=== PATIENT | female | born 1995 | race Caucasian/White ===

== ENCOUNTER 2019-03-22 11:09 | Inpatient (IN) | payer OTHER ==
[~2019-03-22 11:09] MED LIST: CITRIC ACID/SODIUM CITRATE 30 ML UNIT-DOSE CUP PO ONE
[2019-03-22] MEDS: ELECTROLYTE-148 SOLN 500 ML IV SCH (11:25)
[2019-03-22] MEDS: ELECTROLYTE-148 SOLN 1,000 ML IV SCH (11:50)
[2019-03-22 12:55] VITALS: BMI 26.2
[2019-03-22] MEDS ORDERED: ONDANSETRON 4 MG/2 ML VIAL IVPUSH PRN (13:12)
[2019-03-22] MEDS ORDERED: morphine SULFATE/PF 0.5 MG/ML (2cc Syringe - QUVA) EP ONE (13:12)
[2019-03-22] MEDS ORDERED: morphine SULFATE/PF 0.5 MG/ML (2cc Syringe - QUVA) ONE (13:16)
[2019-03-22] MEDS ORDERED: ceFAZolin SODIUM 1 GM VIAL ONE (13:17)
[2019-03-22] MEDS ORDERED: ePHEDrine SULFATE 50 MG/1 ML AMPULE ONE (13:35)
[2019-03-22] MEDS ORDERED: OXYTOCIN 10 UNITS/ML VIAL ONE ×2 (13:37→13:59)
[2019-03-22] MEDS ORDERED: METHYLERGONOVINE MALEATE 0.2 MG/1 ML AMP IM PRN (15:29)
[2019-03-22] MEDS ORDERED: oxyCODONE HCL 5 MG TABLET PO PRN ×2 (15:29)
[2019-03-22] MEDS ORDERED: IBUPROFEN 800 MG/8 ML IJ IVPB PRN (15:29)
[2019-03-22] MEDS ORDERED: OXYTOCIN 20 UNITS in 0.9% NS 20 UNIT/1,000 ML INFUS.BAG IV ONE (16:03)
[2019-03-22] MEDS ORDERED: FLU VACCINE QUAD 60 MCG/0.5 ML (MDV 19-20) IM ONE (16:33)
--- NOTE | 2019-03-22 16:55 | HP ---
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: Alzheimer's, CVA, Dementia, Migraine, Multiple Sclerosis, Peripheral Neuropathy, Parkinson's, Seizure, Syncope, TIA, Vertigo, Other Cardiovascular: No: AFIB, Aneurysm, Aortic Insufficiency, Aortic Stenosis, CAD, CHF, Deep Vein Thrombosis, HTN, Hyperlipdemia, TN, Mitral Insufficiency, Mitral Stenosis, Murmur, Pulmonary Hypertension, Other Pulmonary: No: Asthma, Bronchitis, Cancer, COPD, O2 Dependent, Pneumonia, Previously Intubated, Pulmonary Embolus, Pulmonary Fibrosis, Sleep Apnea, Other Gastrointestinal: No: Ascites, Cancer, Constipation, Crohn's Disease, Diverticulitis, Diverticulosis, Esophageal Varices, Gastritis, GERD, GI Bleed, Hemorrhoids, Hiatal Hernia, Inflamatory Bowel Disease, Irritable Bowel Disease, Pancreatitis, Peptic Ulcer Disease, Ulcerative Colitis, Other Hepatobiliary: No: Cirrhosis, Cholelithiasis, Cholecystitis, Choledocholithiasis , Hepatitis A, Hepatitis B, Hepatitis C, Other Renal/: No: Renal Failure, Renal Inusuff, BPH, Cancer, Hematuria, Hemodialysis , Neurogenic Bladder, Renal Calculi, UTI, Other Reproductive: No: Ectopic , Endometriosis, Fibroids, PID, Polycystic Ovary Syndrome, Postmenopausal, Other ...: 1 ...Para: 0 ...Term: 0 ...: 0 ...Spon : 0 ...Induced : 0 ...Multiple Gestation: 0 ... Weeks Gestation by Dates: 39.6 ...EDC by Dates: 03/23/19 Heme/Onc: No: Anemia, B12 Deficiency, Bleeding Disorder, Cancer, Current Chemotherapy, Current Radiation Therapy, Hemochromatosis, Hypercoaguable State, Myeloproliferative Synd, Sickle Cell Disease, Sickle Cell Trait, Thrombocytopenia, Other Infectious Disease: No: AIDS, C-Diff, Herpes Zoster, HIV, MRSA, STD's, Tuberculosis, VREF, Other Psych: No: Addictions, Anxiety, Bipolar, Depression, Panic, Psychosis, Schizophrenia, Other Musculoskeletal: No: Bursitis, Chronic low back pain, Hemiparesis, Hemiplegia, Osteoarthritis, Paraplegia, Other Rheumatology: No: Fibromyalgia, Gout, Lupus, Rheumatoid Arthritis, Sarcoidosis, Vasculitis, Other ENT: No: Allergic Rhinitis, Sinusitis, Other Endocrine: No: Caribou's Disease, Hansen's Disease, Diabetes Insipidus, Diabetes Mellitus, Hyperparathyroidism, Hyperthyroidism, Hypothyroidism, Osteopenia, SIADH, Other Dermatology: No: Basal Cell, Cellulitis, Eczema, Melanoma, Psoriasis, Squamous Cell, Other - Past Surgical History Past Surgical History: No: None, AAA Repair, AICD, Amputation, Appendectomy, Arthrosocopy, AV Fistula/Graft, Bariatric Surgery, Breast Biopsy, Bypass, CABG, Carotid Endarterectomy, Cataract Removal, Cholecystectomy, Colectomy, Colonoscopy, Colostomy, Craniotomy, , Cystectomy, Hernia Repair, Hysterectomy, Ileal Conduit, Ileosotomy, Joint Replacement, Kidney Transplant, Laminectomy, Liver Transplant, Mastectomy, Nephrectomy, Oopherectomy, Orchiectomy, Permanent Pacemaker, Prostatectomy, Splenectomy, Stent, Thoracotomy , TURP, Tonsillectomy, Tubal Ligation, Upper Endoscopy, Valve Replacement, Vasectomy, Vein Stripping/Ligation Hx Myomectomy: No Hx Transabdominal Cerclage: No - Advance Directives Advance Directives: Yes: Living Will - Smoking History Smoking history: Never smoked Have you smoked in the past 12 months: No - Alcohol/Substance Use Hx Alcohol Use: No - Social History Usual Living Arrangement: Yes: With Spouse Do you think of yourself as: Straight/Heterosexual ADL: Independent History of Recent Travel: No Home Medications - Allergies Allergies/Adverse Reactions: Allergies Allergy/AdvReac Type Severity Reaction Status Date / Time No Known Allergies Allergy Verified 03/22/19 11:47 - Home Medications Home Medications: Ambulatory Orders Mv-Mn/Iron/FA/Herbal/Digestive [ One Tablet] 1 tab PO DAILY 03/22/19 Family Medical History Family History: Denies Review of Systems - Review of Systems Constitutional: reports: No Symptoms Eyes: reports: No Symptoms HENT: reports: No Symptoms Neck: reports: No Symptoms Cardiovascular: reports: No Symptoms Respiratory: reports: No Symptoms Gastrointestinal: reports: No Symptoms Genitourinary: reports: No Symptoms Breasts: reports: No Symptoms Reported Musculoskeletal: reports: No Symptoms Integumentary: reports: No Symptoms Neurological: reports: No Symptoms Endocrine: reports: No Symptoms Hematology/Lymphatic: reports: No Symptoms Psychiatric: reports: No Symptoms Physical Exam - Maternity Vital Signs: Vital Signs Temperature 97.9 F 03/22/19 16:30 Pulse Rate 93 H 03/22/19 16:30 Respiratory Rate 20 03/22/19 16:30 Blood Pressure 112/79 03/22/19 16:30 O2 Sat by Pulse Oximetry (%) 99 03/22/19 15:20 Constitutional: Yes: Well Nourished, No Distress, Calm Eyes: Yes: WNL, Conjunctiva Clear, EOM Intact HENT: Yes: WNL, Atraumatic, Normocephalic Neck: Yes: WNL, Supple, Trachea Midline Cardiovascular: Yes: WNL, Regular Rate and Rhythm Lungs: Clear to auscultation Breast(s): Yes: WNL - Abdominal Exam/OB Fundal Height: 40 Number of Fetuses: Single Presentation: Vertex Contractions: Yes Regularity: Irregular Intensity: Mild Monitor Mode: External Heart Rate (range): 135 Heart Rate Location: [facility] Category: I Accelerations: Uniform Decelerations: None - Vaginal Exam/OB Vaginal Bleediing: No Speculum Exam: No Dilatation (cm): 0 Effacement (%): 10 Amniotic Membrane Status: Intact Presentation: Vertex/Position Station: -3 - Physical Exam Musculoskeletal: Yes: WNL Extremities: Yes: WNL Edema: Yes Edema: LUE: 1+, RUE: 1+, LLE: 1+, RLE: 1+ Integumentary: Yes: WNL Deep Tendon Reflex Grade: Normal +2 ...Motor Strength: WNL Psychiatric: Yes: WNL, Alert, Oriented Assessment/Plan pt requests for c s, . anxiety attack, bruneian culture believe in c s
--- NOTE | 2019-03-22 16:58 | OP ---
Operative Note - Note: Operative Date: 03/22/19 Pre-Operative Diagnosis: pt request, anxiety attack Operation: primary lt c s Findings: canx1 Post-Operative Diagnosis: Same as Pre-op Surgeon: Rehan Keller Battery Installer: Hipolito Hodgson Anesthesiologist/IP LITIGATION ASSOCIATE: Genaro Jarquin Anesthesia: Spinal Estimated Blood Loss (mls): 500 (no complications ) Operative Report Dictated: Yes
[2019-03-22] MEDS ORDERED: FLU VACC QS2019-20(6MOS UP)/PF 60 MCG/0.5 ML SYRINGE IM ONE (17:00)
[2019-03-22] MEDS ORDERED: DIPHTH,PERTUSS(ACELL),TET 0.5 ML DISP.SYRIN IM ONE (17:00)
--- NOTE | 2019-03-22 17:59 | OP ---
DATE OF OPERATION: 03/22/2019 PREOPERATIVE DIAGNOSIS: Patient's request, anxiety attack. POSTOPERATIVE DIAGNOSIS: Patient's request, anxiety attack, cord around the neck x1 tight. PROCEDURE: Primary low transverse section. SURGEON: Rehan Keller MD WHITE METAL CORROSION PROOFER: FARTUN Campos ANESTHESIA: Genaro Jarquin MD, spinal anesthesia. BLOOD LOSS: About 500 mL. PATHOLOGY: Placenta. INDICATIONS: This is a 23-year-old female patient with previous history of an anxiety attach. Patient is Filipino and patient believes in a C section. Patient has anxiety attack. She is very afraid of a vaginal delivery, so patient had many friends who had a C section, and she does not want to try a vaginal delivery, so patient requests a primary low transverse section. All of the risks, benefits, and alternatives explained to the patient. Patient understood. DESCRIPTION OF PROCEDURE: Patient was taken to the OR. Placed on the operating room table in supine position. After the spinal anesthesia was obtained, the patient's abdomen and pelvis were prepped and draped in the usual sterile manner. Pfannenstiel incision was made. Incision was made through the skin and subcutaneous tissue until the fascia was nicked in the midline. The fascia was extended bilaterally. Intraperitoneal cavity was entered. Bladder flap was created. Low transverse segment was entered. Baby delivered from LOT position. Had a cord around the neck x1 tight and the baby was hand delivered to travel physical therapist after umbilical cord doubly clamped and cut. Cord blood gas obtained. Placenta was removed. Uterus was closed in a single layer. First layer interlocking Vicryl suture with good hemostasis. Both gutters were cleaned. Bladder flap was closed. Peritoneum was closed. Fascia was closed. Draining clear urine. Blood loss about 500 mL. Transferred to recovery room in stable condition. MD SUSAN SALAS/[id number]
[2019-03-23] MEDS: OXYTOCIN 20 UNITS in 0.9% NS 20 UNIT/1,000 ML INFUS.BAG IV SCH (08:42)
--- NOTE | 2019-03-23 09:53 | PN ---
Progress Note (short form) - Note Progress Note: 23yo F. s/p c/s w spinal + duramorph. POD 1. pain controlled. no comps. good result of anesthetic care
[2019-03-23] MEDS: ENOXAPARIN NA (PORCINE) 40 MG/0.4 ML DISP.SYRIN SQ SCH (10:10)
[2019-03-23 10:15] LABS: BASO % 0.3 % (0-2.0); EOS % 0.1 % (0-4.5); HEMATOCRIT 24.8 % (32.4-45.2); HEMOGLOBIN 7.9 GM/dL (10.7-15.3); LYMPH % 7.8 % (8-40); MCH 24.1 pg (25.7-33.7); MCHC 31.8 g/dl (32.0-36.0); MEAN CELL VOLUME 75.7 fl (80-96); MEAN PLT VOLUME 7.6 fl (7.5-11.1); NEUT % 86.8 % (42.8-82.8); PLATELET COUNT 207 K/MM3 (134-434); RBC 3.27 M/mm3 (3.60-5.2); RDW 17.7 % (11.6-15.6); WHITE BLOOD COUNT 14.1 K/mm3 (4.0-10.0)
[2019-03-23] MEDS: SIMETHICONE 80 MG TAB.CHEW (FP) PO PRN (15:17)
[2019-03-23] MEDS: IBUPROFEN 600 MG TABLET (FP) PO PRN ×2 (15:17→23:02)
[2019-03-23] MEDS: ACETAMINOPHEN 325 MG TABLET (FP) PO PRN ×2 (15:18→23:02)
[2019-03-23] MEDS ORDERED: BISACODYL 10 MG SUPP.RECT RC PRN (15:29)
--- NOTE | 2019-03-23 15:39 | PN ---
Post Progress Note Post Day: 1 Type of Delivery: Primary C/S Vital Signs: Vital Signs Temperature 97.9 F 03/23/19 09:00 Pulse Rate 91 H 03/23/19 09:00 Respiratory Rate 20 03/23/19 13:00 Blood Pressure 108/66 03/23/19 09:00 O2 Sat by Pulse Oximetry (%) 99 03/22/19 15:20 Breast Exam: Yes: Soft Uterus: Yes: Fundus Firm, Fundus below umbilicus Incision: Yes: Dressing dry and intact, Sutures intact Abdomen/GI: Yes: Abdomen soft, Passing flatus, Tolerating PO Lochia: Yes: Serosa Lochia, amount: Small Extremities: Yes: Calves non-tender Perineum: Yes: Intact Activity: Ambulating - Labs Labs: CBC WBC 14.1 K/mm3 (4.0-10.0) H 03/23/19 09:05 RBC 3.27 M/mm3 (3.60-5.2) L 03/23/19 09:05 Hgb 7.9 GM/dL (10.7-15.3) L 03/23/19 09:05 Hct 24.8 % (32.4-45.2) L D 03/23/19 09:05 MCV 75.7 fl (80-96) L 03/23/19 09:05 MCH 24.1 pg (25.7-33.7) L 03/23/19 09:05 MCHC 31.8 g/dl (32.0-36.0) L 03/23/19 09:05 RDW 17.7 % (11.6-15.6) H 03/23/19 09:05 Plt Count 207 K/MM3 (134-434) 03/23/19 09:05 MPV 7.6 fl (7.5-11.1) 03/23/19 09:05 Absolute Neuts (auto) 12.2 K/mm3 (1.5-8.0) H 03/23/19 09:05 Neutrophils % 86.8 % (42.8-82.8) H 03/23/19 09:05 Lymphocytes % 7.8 % (8-40) L D 03/23/19 09:05 Monocytes % 5.0 % (3.8-10.2) 03/23/19 09:05 Eosinophils % 0.1 % (0-4.5) D 03/23/19 09:05 Basophils % 0.3 % (0-2.0) 03/23/19 09:05 Nucleated RBC % 0 % (0-0) 03/23/19 09:05 Other Findings, Remarks: anemia, will give iron
--- NOTE | 2019-03-23 15:57 | DS ---
Physical Exam-PSYCH THERAPIST Vital Signs: Vital Signs Temperature 97.9 F 03/23/19 09:00 Pulse Rate 91 H 03/23/19 09:00 Respiratory Rate 20 03/23/19 13:00 Blood Pressure 108/66 03/23/19 09:00 O2 Sat by Pulse Oximetry (%) 99 03/22/19 15:20 Constitutional: Yes: Well Nourished, No Distress, Calm Eyes: Yes: WNL, Conjunctiva Clear, EOM Intact HENT: Yes: WNL, Atraumatic, Normocephalic Neck: Yes: WNL, Supple, Trachea Midline Cardiovascular: Yes: WNL, Regular Rate and Rhythm Respiratory: Yes: WNL, Regular, CTA Bilaterally Gastrointestinal: Yes: WNL, Normal Bowel Sounds, Soft ...Rectal Exam: Yes: WNL Renal/: Yes: WNL Pelvis: Yes: WNL External Genitalia: Yes: Normal Internal Exam Deferred: No Vaginal Exam: Yes: Normal Cervix: Yes: Normal Uterus: Yes: Normal Adnexa: Normal: Bilateral ....Post : Yes: Uterus firm, Uterus non-tender Breast(s): Yes: WNL Musculoskeletal: Yes: WNL Extremities: Yes: WNL Edema: No Edema: LUE: 1+, RUE: 1+, LLE: 1+, RLE: 1+ Integumentary: Yes: WNL Wound/Incision: Yes: Clean/Dry, Well Approximated Neurological: Yes: WNL, Alert, Oriented ...Motor Strength: WNL Psychiatric: Yes: WNL, Alert, Oriented Labs: CBC, BMP 03/23/19 09:05 Delivery - Delivery Section: Primary Type of Anesthesia: Spinal Episiotomy/Laceration: None EBL (cc): 500 Delivery, Single - Stages of Labor Date of Delivery: 03/22/19 Time of Delivery: 13:39 Time Placenta Delivered: 13:40 - Condition of Infant Mover/Records Management Assistant Present: Yes Name: Katlin Bansal Gender: Female Weight: 3.459 kg Position: Right, OA Total Hours ROM (Hrs/Mins): 0Hrs/2Mins - 1 Minute Total Score: 9 5 Minutes Total Score: 9 - Feeding Plan Initial Plan: Exclusive throughout hospitalization Discharge Summary Problems reviewed: Yes Reason For Visit: Procedures: Principal: primary lt c s Other Procedures: none Hospital Course: uneventful Health Concerns: none Plan of Treatment: oob as much as possible Condition: Good - Instructions Diet, Activity, Other Instructions: regular, routine post care Disposition: HOME - Home Medications Comprehensive Discharge Medication List: Ambulatory Orders Mv-Mn/Iron/FA/Herbal/Digestive [ One Tablet] 1 tab PO DAILY 03/22/19
[2019-03-23] MEDS: FERROUS SO4 325 MG TABLET (FP) PO SCH (22:31)
[2019-03-23] MEDS: SENNOSIDES/DOCUSATE COMBO (SENNA PLUS) TABLET (UD) PO PRN (22:31)
[2019-03-24] MEDS: ACETAMINOPHEN 325 MG TABLET (FP) PO PRN ×2 (09:55→15:39)
[2019-03-24] MEDS: SIMETHICONE 80 MG TAB.CHEW (FP) PO PRN ×2 (09:55→15:38)
[2019-03-24] MEDS: ENOXAPARIN NA (PORCINE) 40 MG/0.4 ML DISP.SYRIN SQ SCH (09:56)
[2019-03-24] MEDS: FERROUS SO4 325 MG TABLET (FP) PO SCH ×2 (09:56→22:03)
[2019-03-24] MEDS: IBUPROFEN 600 MG TABLET (FP) PO PRN (15:38)
[2019-03-24] MEDS: ELECTROLYTE-148 SOLN 1,000 ML IV SCH (19:00)
[2019-03-24] MEDS: OXYTOCIN 20 UNITS in 0.9% NS 20 UNIT/1,000 ML INFUS.BAG IV SCH (19:00)
[2019-03-24] MEDS: ELECTROLYTE-148 SOLN 500 ML IV SCH (19:00)
[2019-03-24] MEDS: SENNOSIDES/DOCUSATE COMBO (SENNA PLUS) TABLET (UD) PO PRN (22:03)
[2019-03-25] MEDS: ACETAMINOPHEN 325 MG TABLET (FP) PO PRN (07:59)
[2019-03-25] MEDS: IBUPROFEN 600 MG TABLET (FP) PO PRN (08:00)
[2019-03-25] MEDS: SIMETHICONE 80 MG TAB.CHEW (FP) PO PRN (08:01)
[2019-03-25 08:50] VITALS: BP 120/80; PULSE 91; TEMP 99
[2019-03-25 09:14] LABS: BASO % 0.4 % (0-2.0); EOS % 0.6 % (0-4.5); HEMOGLOBIN 8.3 GM/dL (10.7-15.3); LYMPH % 11.2 % (8-40); MCH 24.3 pg (25.7-33.7); MCHC 31.8 g/dl (32.0-36.0); MEAN CELL VOLUME 76.3 fl (80-96); MEAN PLT VOLUME 7.3 fl (7.5-11.1); NEUT % 82.8 % (42.8-82.8); PLATELET COUNT 323 K/MM3 (134-434); RDW 17.5 % (11.6-15.6); WHITE BLOOD COUNT 12.6 K/mm3 (4.0-10.0)
[2019-03-25] MEDS: ENOXAPARIN NA (PORCINE) 40 MG/0.4 ML DISP.SYRIN SQ SCH (10:00)
[2019-03-25] MEDS: FERROUS SO4 325 MG TABLET (FP) PO SCH (10:00)
--- NOTE | 2019-03-25 14:38 | PN ---
Post Progress Note Post Day: 3 Type of Delivery: Primary C/S Vital Signs: Vital Signs Temperature 99 F 03/25/19 07:35 Pulse Rate 91 H 03/25/19 07:35 Respiratory Rate 18 03/25/19 07:35 Blood Pressure 120/80 03/25/19 07:35 O2 Sat by Pulse Oximetry (%) 99 03/22/19 15:20 Breast Exam: Yes: Soft Uterus: Yes: Fundus Firm, Fundus below umbilicus Incision: Yes: Dressing dry and intact, Sutures intact Abdomen/GI: Yes: Abdomen soft, Passing flatus, Tolerating PO Lochia: Yes: Serosa Lochia, amount: Small Extremities: Yes: Calves non-tender Perineum: Yes: Intact Activity: Ambulating - Labs Labs: CBC WBC 12.6 K/mm3 (4.0-10.0) H 03/25/19 08:50 RBC 3.40 M/mm3 (3.60-5.2) L 03/25/19 08:50 Hgb 8.3 GM/dL (10.7-15.3) L 03/25/19 08:50 Hct 26.0 % (32.4-45.2) L 03/25/19 08:50 MCV 76.3 fl (80-96) L 03/25/19 08:50 MCH 24.3 pg (25.7-33.7) L 03/25/19 08:50 MCHC 31.8 g/dl (32.0-36.0) L 03/25/19 08:50 RDW 17.5 % (11.6-15.6) H 03/25/19 08:50 Plt Count 323 K/MM3 (134-434) D 03/25/19 08:50 MPV 7.3 fl (7.5-11.1) L 03/25/19 08:50 Absolute Neuts (auto) 10.4 K/mm3 (1.5-8.0) H 03/25/19 08:50 Neutrophils % 82.8 % (42.8-82.8) 03/25/19 08:50 Lymphocytes % 11.2 % (8-40) D 03/25/19 08:50 Monocytes % 5.0 % (3.8-10.2) 03/25/19 08:50 Eosinophils % 0.6 % (0-4.5) D 03/25/19 08:50 Basophils % 0.4 % (0-2.0) 03/25/19 08:50 Nucleated RBC % 0 % (0-0) 03/25/19 08:50 Assessment/Plan dc pt home today,
--- NOTE | 2019-04-01 16:57 | PATH ---
Surgical Pathology Report Patient Name: MIGUEL ÁNGEL FISHER [facility] Rec. #: [id number] /Age/Gender: 1995 (Age: 23) / F Account: [id number] Location: [address] [place] [address] OBG/SAP ABAP DEVELOPER Taken: 03/22/2019 Received: 03/25/2019 Reported: 04/01/2019 Physicians: Rehan Keller MD Specimen(s) Received PLACENTA Clinical History , 39.6 weeks elective Final Diagnosis PLACENTA, SECTION: 592 G THIRD TRIMESTER PLACENTA WITH TRIVASCULAR UMBILICAL CORD AND UNREMARKABLE PLACENTAL MEMBRANES. Electronically Signed Jessika Ott M.D. Gross Description The specimen is received fresh labeled placenta and is a 592 gram, 18.0 x 16.5 x 2.6 cm. placenta with attached membranes and umbilical cord. The attached membranes are hill, translucent with focal opacities and insert marginally. The umbilical cord measures 30 cm. in length and averages 0.8 cm. in diameter. The cord inserts eccentrically, 5 cm. to the nearest margin. No true knots or strictures are identified. Cut surface of the umbilical cord reveals 3 vessels. The surface is varela-blue with minimal fibrin deposition and appropriate caliber vessels. The maternal surface is red-brown with focal defects. Sectioning reveals red-brown, spongy parenchyma. No lesions are identified. Meter Reader sections are submitted in three cassettes as follows: 1- membrane rolls and umbilical cord; 2-3- full thickness sections of placenta. 03/29/2019 [facility]03/29/2019
== END 2019-03-25 16:03 | disposition home or self-care (01) | DRG 540 ==
LOC: EDBD → JLDR 11:09 → J3W 16:22
PROVIDERS: ADMIT Obstetrics & Gynecology; ATTEND Obstetrics & Gynecology
PROC: 10D00Z1 Extraction of Products of Conception, Low, Open Approach (ICD-10-PCS; principal; 2019-03-22)
DX: O69.1XX0 Labor and delivery complicated by cord around neck, with compression, not applicable or unspecified (principal); O99.344 Other mental disorders complicating childbirth; F41.8 Other specified anxiety disorders; Z3A.39 39 weeks gestation of pregnancy; Z37.0 Single live birth
CPT/HCPCS: 36415; 85025; 85461; 88307-TC; 90686; 90715